=== PATIENT | male | born 1940 | race Caucasian/White ===

== ENCOUNTER 2024-04-03 06:19 | Outpatient (REF) | payer SELFPAY ==
[2024-04-03 06:00] LABS: MANUAL DIFF FLAG NO
[2024-04-03 06:26] LABS: INTERNATIONAL NORM RATIO 4.9 (0.9-1.1); Prothrombin Time 59.2 SEC (11.1-13.3)
[2024-04-03 07:01] LABS: Basophils Percent Auto 0.2 % (0-2); Eosinophils Percent Auto 0.1 % (0-4); Hematocrit 37.5 % (42.0-52.0); Hemoglobin 12.3 g/dl (14.0-18.0); Imm Gran Abs Auto 0.04 X10*3/uL (0.00-0.03); Imm Gran Pct Auto 0.5 % (0.0-0.4); Lymphocytes Absolute Auto 1.4 X10*3/uL (1.2-4.9); Lymphocytes Percent Auto 16.9 % (20-40); Mean Corpuscular HGB Conc 32.8 g/dl (31.0-36.0); Mean Corpuscular Hemoglobin 29.9 pg (27.0-33.0); Mean Platelet Volume 9.2 fL (9.4-12.4); Monocytes Percent Auto 11.5 % (2-11); Neutrophils Percent Auto 70.8 % (45-73); Platelet Count 239 X10*3/uL (160-400); Red Blood Count 4.12 X10*6/uL (4.60-5.80); Red Cell Distribution Width 15.1 % (11.0-16.0); White Blood Count 8.5 X10*3/uL (4.8-10.8)
[2024-04-03 07:26] LABS: Alanine Aminotransferase 43 U/L (0-40); Albumin Level 3.6 g/dL (3.5-5.0); Alkaline Phosphatase 107 U/L (39-117); Anion Gap 13 (12-20); Aspartate Amino Transferase 29 U/L (5-37); Blood Urea Nitrogen 23 mg/dL (9-16); Calcium 8.6 mg/dL (8.4-10.2); Carbon Dioxide 27 mmol/L (22-29); Chloride 102 mmol/L (96-108); Estimated Glomerular Filt Rate > 60; Glucose Random 106 mg/dL (60-115); Potassium 4.3 mmol/L (3.3-5.1); Sodium 138 mmol/L (135-145); Total Protein 6.5 g/dL (6.5-8.0)
[2024-04-03 07:56] LABS: Bilirubin Total 0.5 mg/dL (0.0-1.0)
== END 2024-04-03 06:20 | disposition home or self-care (01) ==
LOC: HO.MMNH2L 06:19
PROVIDERS: Visit Provider Hospitalist
DX: I48.91 Unspecified atrial fibrillation (principal); I11.0 Hypertensive heart disease with heart failure; I50.9 Heart failure, unspecified
CPT/HCPCS: 36415; 80053; 85025; 85610